=== PATIENT | female | born 1970 | race Caucasian/White ===

== ENCOUNTER 2021-10-12 11:56 | Emergency (ER) | payer SELFPAY ==
[2021-10-12] MEDS ORDERED: BACTRIM DS TAB1 EACH PO (14:42)
== END 2021-10-12 15:18 | disposition home or self-care (01) ==
LOC: FER 11:56
DX: L02.01 Cutaneous abscess of face (principal); I10 Essential (primary) hypertension; F17.210 Nicotine dependence, cigarettes, uncomplicated
CPT/HCPCS: 99283